=== PATIENT | male | born 1965 | race Hispanic/Latino ===

== ENCOUNTER 2017-04-15 21:28 | Emergency (ER) | payer OTHER | END 2017-04-15 22:23 | disposition home or self-care (01) | LOC: ERS 21:28 | DX: B00.9 Herpesviral infection, unspecified (principal) | CPT/HCPCS: 99282 ==

== ENCOUNTER 2017-04-19 15:57 | Emergency (ER) | payer OTHER, SELFPAY | END 2017-04-19 17:00 | disposition home or self-care (01) | LOC: ERS 15:57 | DX: B00.9 Herpesviral infection, unspecified (principal) | CPT/HCPCS: 99282 ==

== ENCOUNTER 2021-11-06 18:32 | Emergency (ER) | payer BC, OTHER ==
[2021-11-11 07:16] LABS: HSV 1 - DNA Negative (Negative); HSV 2 - DNA Positive (Negative)
== END 2021-11-06 21:24 | disposition home or self-care (01) ==
LOC: ERS 18:32
DX: A60.00 Herpesviral infection of urogenital system, unspecified (principal)
CPT/HCPCS: 87529; 87593; 99283